=== PATIENT | male | born 1950 | race Caucasian/White ===

== ENCOUNTER → 2016-09-10 | Outpatient (CLI) | payer OTHER, MEDICARE ==
[~2016-09-10] MED LIST: ALAVERT10 M1 PO; ALBUTEROL0.09 MG/A1 INH; ALBUTEROL0.09 MG/A2 IH; ASCORBIC ACID; ASPIRIN80 MG PO; CARVEDILOL12.5 MG PO; COMBIVENT1 ARO IH; COREG12.5 MG PO; DOXYCYCLINE100 MG PO; FISH OIL PO; FORADIL AERO0.012 MG IH; GUAIFENESIN600 MG PO; IBUPROFEN1 CRY; K-DUR 1010 MEQ PO; KEFLEX500 MG PO; LISINOPRIL10 MG PO; MAGNESIUM OXID200 MG PO; MEDROL DOSEPAK4 MG PO; MUCINEX600 MG PO; MULTIPLE VITAMI1 TAB PO; POLYETHYLENE GL PO; PREDNISONE10 MG PO; PRILOSEC20 MG PO; SPIRIVA18 MCG IH; TESSALON PERLE100 M1 PO; VIBRAMYCIN100 MG PO; VICODIN 500 MG-1 TAB PO; VICODIN ES 7501 TAB PO; VITAMIN C1000 MG PO; Vicodin 5/500 505 MG PO; ZITHROMAX Z PA250 MG PO; [UNRECOGNIZED DRUG - CODE] PO
== END ==
LOC: US 14:29
DX: N50.82 Scrotal pain (principal)

== ENCOUNTER → 2017-02-26 | Outpatient (CLI) | payer OTHER | END | disposition home or self-care (01) | LOC: US 11:01 | DX: N50.82 Scrotal pain (principal) ==

== ENCOUNTER 2022-02-14 09:16 | Emergency (ER) | payer OTHER ==
[~2022-02-14] VITALS: Wt 117.9 kg
[2022-02-14] MEDS ORDERED: ZITHROMAX250 MG PO (09:49)
== END 2022-02-14 10:01 | disposition home or self-care (01) ==
LOC: ED 09:16
DX: H66.92 Otitis media, unspecified, left ear (principal); H61.22 Impacted cerumen, left ear; Z88.1 Allergy status to other antibiotic agents; Z79.899 Other long term (current) drug therapy; Z79.82 Long term (current) use of aspirin; Z79.2 Long term (current) use of antibiotics; Z95.5 Presence of coronary angioplasty implant and graft

== ENCOUNTER 2024-04-06 19:15 | Emergency (ER) | payer OTHER ==
[~2024-04-06] VITALS: Ht 182.8 cm; Wt 95.3 kg
[~2024-04-06 19:15] MED LIST changes: +ZITHROMAX250 MG PO
[2024-04-06 20:03] LABS: BASO % 0.5 % (0.0-1.0); EOS # 0.2 10*3/uL (0.0-0.4); EOS % 2.4 % (1.0-4.0); HEMATOCRIT 49.1 % (42.0-52.0); MEAN CELL VOLUME 88.8 fl (80.0-94.0); MEAN CORPUSCULAR HGB 28.8 pg (27.0-31.0); MEAN CORPUSCULAR HGB CONC 32.4 g/dl (33.0-37.0); MEAN PLATELET VOLUME 9.7 fl (9.6-12.3); MONO # 0.7 10*3/uL (0.1-1.0); MONO % 7.9 % (3.0-9.0); NEUT # 6.9 10*3/uL (2.3-7.9); NEUT % 78.2 % (47.0-73.0); PLATELET COUNT AUTOMATED 144 10*3/uL (130-400); RED BLOOD COUNT 5.53 10*6/uL (4.50-5.90); RED CELL DISTRI WIDTH 12.3 % (0-14.5); WHITE BLOOD COUNT 8.9 10*3/uL (4.8-10.8)
[2024-04-06 20:17] LABS: BUN 22 mg/dl (9-23); CHLORIDE 105 mmol/L (98-107); POTASSIUM 4.5 mmol/L (3.4-5.1)
[2024-04-06] MEDS ORDERED: Loperamide Hydrochloride 2 MG CAP PO ONE (21:05)
[2024-04-06] MEDS ORDERED: VANCOMYCIN HCL125 MG PO (22:15)
== END 2024-04-06 21:38 | disposition home or self-care (01) ==
LOC: ED 19:15
PROVIDERS: Internal Medicine
DX: R19.7 Diarrhea, unspecified (principal); I10 Essential (primary) hypertension; K21.9 Gastro-esophageal reflux disease without esophagitis; Z88.1 Allergy status to other antibiotic agents; Z98.890 Other specified postprocedural states; Z95.5 Presence of coronary angioplasty implant and graft